=== PATIENT | male | born 1990 ===

== ENCOUNTER 2020-01-26 09:19 | Emergency (ER) | payer OTHER ==
[~2020-01-26] VITALS: Ht 182.9 cm; Wt 164.6 kg
[~2020-01-26 09:19] MED LIST: CEPH-368 PO
--- NOTE | 2020-01-26 10:44 | NUR ---
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
[2020-01-26] MEDS ORDERED: NITROGLYCERIN OINT 2%, 1GM TP ONE ×2 (11:00→11:12)
[2020-01-26] MEDS ORDERED: ASPIRIN 81 MG TABLET CHEW PO ONE (11:00)
[2020-01-26] MEDS ORDERED: ASPIRIN 81 MG TABLET CHEW ONE (11:12)
--- NOTE | 2020-01-26 11:15 | NUR ---
PT MEDICATED PER MAR. HOLDING NITRO UNTIL DISCUSSION WITH MD R/T PT HR 45. LABS COLLECTED. CALL LIGHT WITHIN REACH
[2020-01-26 11:24] LABS: BASOPHILS # (AUTO) 0.03 x10^3/uL (0-0.1); BASOPHILS % (AUTO) 1 % (0-1); EOSINOPHILS # (AUTO) 0.11 x10^3/uL (0-0.4); EOSINOPHILS % (AUTO) 2 % (1-7); LYMPHOCYTES # (AUTO) 1.24 x10^3/uL (1-3.4); LYMPHOCYTES % (AUTO) 25 % (22-44); MD NO; MEAN CORPUSCULAR HGB CONC 33.9 g/dL (33.2-36.2); MEAN CORPUSCULAR VOLUME 88.6 fL (81-97); MEAN PLATELET VOLUME 8.1 fL (7.4-10.4); MONOCYTES # (AUTO) 0.37 x10^3/uL (0.2-0.8); MONOCYTES % (AUTO) 7 % (2-9); NEUTROPHILS # (AUTO) 3.32 x10^3/uL (1.8-6.8); NEUTROPHILS % (AUTO) 66 % (42-75); PLATELET COUNT 245 x10^3/uL (130-400); RED CELL DISTRIBUTION WIDTH 13.8 % (9.4-14.8)
[2020-01-26 11:35] LABS: ALANINE AMINOTRANSFERASE 65 U/L (12-78); ALBUMIN 3.7 g/dL (3.4-5.0); ANION GAP 8 mmol/L (5-15); CALCIUM 8.3 mg/dL (8.5-10.1); CHLORIDE 107 mmol/L (98-107); CREATININE 0.85 mg/dL (0.7-1.3)
[2020-01-26 11:39] LABS: ALKALINE PHOSPHATASE 75 U/L (45-117); BILIRUBIN,TOTAL 0.7 mg/dL (0.2-1.0); TOTAL PROTEIN 7.3 g/dL (6.4-8.2); TROPONIN I < 0.015 ng/mL (0.000-0.045)
--- NOTE | 2020-01-26 11:51 | NUR ---
ALL RESULTS BACK AT THIS TIME, CHART UP FOR RECHECK
[2020-01-26 12:19] VITALS: BP 177/94
--- NOTE | 2020-01-26 12:20 | NUR ---
PT CONTINUES TO BE HYPERTENSIVE BUT STS AFTER MEDS CP HAS DECREASED FROM 06/10 TO 01/11. AWAITING MD RECHECK AND DISPO
== END 2020-01-26 12:57 | disposition home or self-care (01) ==
LOC: ED 12:51
DX: R07.2 Precordial pain (principal); I10 Essential (primary) hypertension
CPT/HCPCS: 36415; 71045; 80053; 83880; 84484; 85025; 85379; 93005; 99285

== ENCOUNTER 2020-06-08 20:49 | Emergency (ER) | payer OTHER ==
[~2020-06-08] VITALS: Ht 182.9 cm; Wt 158.9 kg
[2020-06-08] MEDS ORDERED: KETOROLAC 30 MG/1 ML IM ONE (21:30)
[2020-06-08] MEDS ORDERED: KETOROLAC 30 MG/1 ML ONE (21:30)
[2020-06-08 21:57] LABS: ALBUMIN 3.6 g/dL (3.4-5.0); ANION GAP 4 mmol/L (5-15); CALCIUM 8.7 mg/dL (8.5-10.1); CHLORIDE 109 mmol/L (98-107)
[2020-06-08 22:01] LABS: TROPONIN I < 0.015 ng/mL (0.000-0.045)
[2020-06-08 22:02] LABS: BASOPHILS # (AUTO) 0.04 x10^3/uL (0-0.1); BASOPHILS % (AUTO) 1 % (0-1); EOSINOPHILS # (AUTO) 0.05 x10^3/uL (0-0.4); EOSINOPHILS % (AUTO) 1 % (1-7); LYMPHOCYTES # (AUTO) 0.64 x10^3/uL (1-3.4); LYMPHOCYTES % (AUTO) 13 % (22-44); MD NO; MEAN CORPUSCULAR HEMOGLOBIN 29.9 pg (27.5-34.5); MEAN CORPUSCULAR HGB CONC 33.5 g/dL (33.2-36.2); MEAN PLATELET VOLUME 8.7 fL (7.4-10.4); MONOCYTES # (AUTO) 0.62 x10^3/uL (0.2-0.8); MONOCYTES % (AUTO) 12 % (2-9); NEUTROPHILS # (AUTO) 3.79 x10^3/uL (1.8-6.8); NEUTROPHILS % (AUTO) 74 % (42-75); PLATELET COUNT 218 x10^3/uL (130-400); RED BLOOD COUNT 5.76 x10^6/uL (4.38-5.82); RED CELL DISTRIBUTION WIDTH 13.5 % (9.4-14.8)
[2020-06-08] MEDS ORDERED: ACETAMINOPHEN 500 MG TABLET ONE (22:17)
[2020-06-08 22:22] VITALS: BP 149/87
[2020-06-08] MEDS ORDERED: ACETAMINOPHEN 500 MG TABLET PO ONE (22:30)
--- NOTE | 2020-06-10 13:45 | NUR ---
THROUGHPUT: PT CALLED FOR COVID RESULTS. RESULTS STILL PENDING
== END 2020-06-08 22:43 | disposition home or self-care (01) ==
LOC: ED 22:37
DX: U07.1 COVID-19 (principal); R94.31 Abnormal electrocardiogram [ECG] [EKG]; R07.89 Other chest pain; J06.9 Acute upper respiratory infection, unspecified; I10 Essential (primary) hypertension
CPT/HCPCS: 36415; 71046; 80048; 82040; 84484; 85025; 87635; 93005; 96372; 99285; J1885

== ENCOUNTER 2021-02-14 21:49 | Emergency (ER) | payer BC, OTHER ==
[~2021-02-14] VITALS: Ht 182.9 cm; Wt 173.0 kg
[2021-02-14 21:51] VITALS: BP 174/104
--- NOTE | 2021-02-14 22:12 | NUR ---
assessment made. chart up for MD to see.
--- NOTE | 2021-02-14 22:33 | NUR ---
seen by ERP. orders made. awaiting X ray.
--- NOTE | 2021-02-14 23:05 | NUR ---
X ray done. awaiting result.
--- NOTE | 2021-02-14 23:34 | NUR ---
X ray resulted. chart up for MD to re-eval.
--- NOTE | 2021-02-14 23:52 | NUR ---
re-evaluation done. patient discharged with prescriptions and instruction. verbalized understanding.
== END 2021-02-14 23:57 | disposition home or self-care (01) ==
LOC: ED 23:40
DX: S29.011A Strain of muscle and tendon of front wall of thorax, initial encounter (principal); R07.89 Other chest pain; I10 Essential (primary) hypertension; R94.31 Abnormal electrocardiogram [ECG] [EKG]; X58.XXXA Exposure to other specified factors, initial encounter; Y93.89 Activity, other specified; Y92.89 Other specified places as the place of occurrence of the external cause; Y99.8 Other external cause status
CPT/HCPCS: 93005; 99283

== ENCOUNTER 2021-06-28 17:33 | Emergency (ER) | payer BC, OTHER ==
[~2021-06-28] VITALS: Ht 182.9 cm; Wt 165.1 kg
--- NOTE | 2021-06-28 18:56 | NUR ---
RECEIVED REPORT FROM ANDREI STARKS
[2021-06-28 19:17] LABS: BASOPHILS % (AUTO) 1 % (0-1); EOSINOPHILS % (AUTO) 1 % (1-7); LYMPHOCYTES % (AUTO) 17 % (22-44); MEAN CORPUSCULAR HEMOGLOBIN 30.7 pg (27.5-34.5); MEAN CORPUSCULAR HGB CONC 34.6 g/dL (33.2-36.2); MEAN PLATELET VOLUME 9.1 fL (7.4-10.4); MONOCYTES % (AUTO) 5 % (2-9); NEUTROPHILS % (AUTO) 76 % (42-75); PLATELET COUNT 229 x10^3/uL (130-400); RED BLOOD COUNT 5.68 x10^6/uL (4.38-5.82); RED CELL DISTRIBUTION WIDTH 13.9 % (9.4-14.8)
[2021-06-28 19:26] LABS: ALBUMIN 3.4 g/dL (3.4-5.0); ANION GAP 4 mmol/L (5-15); CALCIUM 8.6 mg/dL (8.5-10.1); CHLORIDE 107 mmol/L (98-107); CREATININE 0.92 mg/dL (0.7-1.3)
[2021-06-28 19:30] LABS: TROPONIN I < 0.015 ng/mL (0.000-0.045)
[2021-06-28 20:55] VITALS: BP 150/89
== END 2021-06-28 20:56 | disposition home or self-care (01) ==
LOC: ED 20:50
DX: R07.89 Other chest pain (principal); R53.83 Other fatigue; R42 Dizziness and giddiness; R94.31 Abnormal electrocardiogram [ECG] [EKG]
CPT/HCPCS: 36415; 71045; 80048; 82040; 83880; 84484; 85025; 85379; 93005; 99285